=== PATIENT | female | born 1960 | race African-American/Black ===

== ENCOUNTER 2018-04-30 12:32 | Emergency (ER) | payer SELFPAY | END 2018-04-30 15:49 | disposition left against medical advice (07) | LOC: E/R 15:49 | DX: Z53.21 Procedure and treatment not carried out due to patient leaving prior to being seen by health care provider (principal) | CPT/HCPCS: 93005 ==

== ENCOUNTER 2019-01-15 19:00 | Emergency (ER) | payer SELFPAY | END 2019-01-15 23:10 | disposition left against medical advice (07) | LOC: E/R 19:00 | DX: Z53.21 Procedure and treatment not carried out due to patient leaving prior to being seen by health care provider (principal) ==